=== PATIENT | female | born 1975 | race Caucasian/White ===

== ENCOUNTER 2020-10-10 09:35 | Emergency (ER) | payer OTHER ==
[~2020-10-10] VITALS: Ht 152.4 cm; Wt 85.3 kg
[2020-10-10 10:04] VITALS: BP 124/76
[2020-10-10] MEDS ORDERED: SYNTHROID50 MCG PO (10:05)
== END 2020-10-10 10:50 | disposition home or self-care (01) ==
LOC: M.ERS 09:35
DX: Z20.828 Contact with and (suspected) exposure to other viral communicable diseases (principal)

== ENCOUNTER → 2020-12-24 | Outpatient (CLI) | payer OTHER ==
[~2020-12-24] MED LIST: SYNTHROID50 MCG PO
== END ==
LOC: M.RAD 08:00
PROVIDERS: ATTEND Family Medicine
DX: Z12.31 Encounter for screening mammogram for malignant neoplasm of breast (principal)

== ENCOUNTER 2021-07-02 07:34 | Emergency (ER) | payer OTHER ==
[~2021-07-02] VITALS: Ht 152.4 cm; Wt 60.8 kg
[2021-07-02] MEDS ORDERED: ALIGN4 MG PO (07:47)
[2021-07-02 07:56] LABS: URINE BILIRUBIN NEGATIVE (Negative); URINE BLOOD TRACE (Negative); URINE CLARITY CLEAR; URINE COLOR YELLOW; URINE GLUCOSE-RANDOM NEGATIVE (Negative); URINE KETONES NEGATIVE (Negative); URINE LEUKOCYTES NEGATIVE (Negative); URINE NITRITE NEGATIVE (Negative); URINE PROTEIN NEGATIVE (Negative); URINE SPECIFIC GRAVITY 1.025 (1.005-1.030); URINE UROBILINOGEN 0.2 E.U./dl (0.2-1.0)
[2021-07-02 08:40] LABS: CALCIUM 8.7 mg/dL (8.5-10.1); CREATININE 0.8 mg/dL (0.6-1.3); POTASSIUM 4.5 mmol/L (3.5-5.1)
[2021-07-02 08:44] LABS: ALBUMIN 3.7 g/dL (3.4-5.0); TOTAL BILIRUBIN 0.6 mg/dL (<0.1-1.0); TOTAL PROTEIN 7.2 g/dL (6.4-8.2)
[2021-07-02 08:53] LABS: ABSOLUTE BASOPHILS 0.1 thou/uL (0.0-0.2); ABSOLUTE EOSINOPHILS 0.1 thou/uL (0.0-0.7); ABSOLUTE LYMPHOCYTES 2.9 thou/uL (0.8-5.3); ABSOLUTE MONOCYTES 0.5 thou/uL (0.0-1.2); ABSOLUTE NEUTROPHILS 5.3 thou/uL (1.6-8.1); BASOPHILS 1.1 %; EOSINOPHILS 1.4 %; HEMATOCRIT 43.5 % (37.0-47.0); HEMOGLOBIN 14.6 gm/dL (12.0-15.0); LYMPHOCYTES 32.7 %; MCH 31.4 pg (26.0-34.0); MCHC 33.5 g/dL (28.0-37.0); MCV 93.5 fL (80.0-100.0); MONOCYTES 5.3 %; MPV 9.3 fl. (7.2-11.1); NUCLEATED RBCS 0 /100WBC; PLATELET COUNT* 185 thou/uL (150-400); POLYS 59.5 %; RBC 4.65 mil/uL (4.20-5.00); RDW-CV 12.5 % (10.5-14.5); WBC 8.8 thou/uL (4.0-11.0)
[2021-07-02 10:43] LABS: URINE BILIRUBIN NEGATIVE (Negative); URINE BLOOD NEGATIVE (Negative); URINE CLARITY CLEAR; URINE COLOR YELLOW; URINE GLUCOSE-RANDOM NEGATIVE (Negative); URINE KETONES NEGATIVE (Negative); URINE LEUKOCYTES-REFLEX NEGATIVE (Negative); URINE NITRITE-REFLEX NEGATIVE (Negative); URINE PROTEIN NEGATIVE (Negative); URINE SPECIFIC GRAVITY 1.015 (1.005-1.030); URINE UROBILINOGEN 0.2 E.U./dl (0.2-1.0)
[2021-07-02] MEDS ORDERED: ZOFRAN ODT4 MG PO (12:49)
[2021-07-02] MEDS ORDERED: HYDROCODON-ACE1 EA11 PO (12:49)
[2021-07-02 12:57] VITALS: BP 97/53
== END 2021-07-02 12:58 | disposition home or self-care (01) ==
LOC: M.ERS 07:34
PROVIDERS: Emergency Medicine
DX: R10.12 Left upper quadrant pain (principal); E03.9 Hypothyroidism, unspecified; Z90.49 Acquired absence of other specified parts of digestive tract; Z79.899 Other long term (current) drug therapy

== ENCOUNTER → 2021-07-26 | Outpatient (CLI) | payer OTHER ==
[~2021-07-26] MED LIST changes: +ALIGN4 MG PO; +HYDROCODON-ACE1 EA11 PO; +ZOFRAN ODT4 MG PO
== END ==
LOC: M.MRI 07:59
PROVIDERS: ATTEND Nurse Practitioner Adult Health
DX: R93.3 Abnormal findings on diagnostic imaging of other parts of digestive tract (principal)

== ENCOUNTER → 2021-08-02 | Outpatient (CLI) | payer OTHER | LOC: M.LAB 12:29 | PROVIDERS: ATTEND Internal Medicine Gastroenterology | DX: Z01.812 Encounter for preprocedural laboratory examination (principal); Z20.822 Contact with and (suspected) exposure to COVID-19 ==